=== PATIENT | female | born 1955 | race Caucasian/White ===

== ENCOUNTER 2017-12-19 17:47 | Emergency (ER) | payer OTHER ==
[2017-12-19] MEDS: ACETAMINOPHEN 500 MG 500 MG TAB PO ONE (18:25)
[2017-12-19] MEDS ORDERED: ACETAMINOPHEN 500 MG 500 MG TAB ONE (18:26)
[2017-12-19 19:02] VITALS: TEMP 98.9
[2017-12-19 19:15] VITALS: BP 142/94; PULSE 79; RESP 20; O2SAT 96
== END 2017-12-19 19:52 | disposition home or self-care (01) | DRG 914 ==
LOC: ED 17:47
DX: S09.90XA Unspecified injury of head, initial encounter (principal); V44.5XXA Car driver injured in collision with heavy transport vehicle or bus in traffic accident, initial encounter; M54.2 Cervicalgia
CPT/HCPCS: 70450; 99283; 99284; G0390